=== PATIENT | female | born 1975 | race Caucasian/White ===

== ENCOUNTER → 2022-10-23 11:56 | Outpatient (CLI) | payer OTHER, SELFPAY ==
--- NOTE | 2022-10-23 | DI.RAD.S_ITS ---
PROCEDURE: XR FOOT RT 2V INDICATIONS: Artheritis screening TECHNIQUE: 2 views of the foot were acquired. COMPARISON: None. FINDINGS: Bones: No fractures or dislocations. No suspicious bony lesions. Plantar calcaneal spur. Soft tissues: No tibiotalar joint effusion. Achilles tendon appears normal. IMPRESSION: No evidence acute bony abnormality. Dictated by: Grayson Vincent M.D. on 10/23/2022 at 15:29 Approved by: Grayson Vincent M.D. on 10/23/2022 at 15:30
--- NOTE | 2022-10-23 | DI.RAD.S_ITS ---
PROCEDURE: XR KNEE LT 1TO2V INDICATIONS: Artheritis screening TECHNIQUE: 2 views of the knee were acquired. COMPARISON: None. FINDINGS: Bones: No fractures or dislocations. No suspicious bony lesions. Mild tricompartmental knee joint degeneration. Soft tissues: No joint effusion. No suspicious soft tissue calcifications. IMPRESSION: Mild osteoarthritic changes. Dictated by: Kenneth Rodríguez M.D. on 10/23/2022 at 15:04 Approved by: Kenneth Rodríguez M.D. on 10/23/2022 at 15:05
--- NOTE | 2022-10-23 | DI.RAD.S_ITS ---
PROCEDURE: XR FOOT LT 2V INDICATIONS: Artheritis screening TECHNIQUE: 3 views of the foot were acquired. COMPARISON: [facility], CR, XR FOOT RT 2V, 10/23/2022, 12:28. FINDINGS: Bones: No fractures or dislocations. No suspicious bony lesions. Plantar calcaneal spur. Soft tissues: No tibiotalar joint effusion. Achilles tendon appears normal. IMPRESSION: Plantar calcaneal spur. No evidence acute bony abnormality. Dictated by: Grayson Vincent M.D. on 10/23/2022 at 15:30 Approved by: Grayson Vincent M.D. on 10/23/2022 at 15:30
--- NOTE | 2022-10-23 | DI.RAD.S_ITS ---
PROCEDURE: XR KNEE RT 1TO2V INDICATIONS: Artheritis screening TECHNIQUE: 2 views of the knee were acquired. COMPARISON: None. FINDINGS: Bones: No fractures or dislocations. No suspicious bony lesions. Mild osteoarthritic changes. Soft tissues: No joint effusion. No suspicious soft tissue calcifications. IMPRESSION: Mild osteoarthritic changes. Dictated by: Kenneth Rodríguez M.D. on 10/23/2022 at 15:05 Approved by: Kenneth Rodríguez M.D. on 10/23/2022 at 15:05
--- NOTE | 2022-10-23 | DI.RAD.S_ITS ---
PROCEDURE: XR HAND LT 2V INDICATIONS: Artheritis screening TECHNIQUE: 2 views of the hand(s) acquired. COMPARISON: None. FINDINGS: Bones: No fractures or dislocations. Carpal bones are normally aligned. No suspicious bony lesions. Mild joint space narrowing of the 2nd and 5th distal interphalangeal joints. Soft tissues: No suspicious soft tissue calcifications. IMPRESSION: Mild joint space narrowing of the 2nd and 5th distal interphalangeal joints. Dictated by: Dejan Kevin M.D. on 10/23/2022 at 15:27 Approved by: Dejan Kevin M.D. on 10/23/2022 at 15:29
--- NOTE | 2022-10-23 | DI.RAD.S_ITS ---
PROCEDURE: XR HAND RT 2V INDICATIONS: Artheritis screening TECHNIQUE: 2 views of the hand(s) acquired. COMPARISON: [facility], CR, XR HAND LT 2V, 10/23/2022, 12:34. FINDINGS: Bones: No fractures or dislocations. Carpal bones are normally aligned. No suspicious bony lesions. Soft tissues: No suspicious soft tissue calcifications. IMPRESSION: No significant osteoarthritic changes. Dictated by: Dejan Kevin M.D. on 10/23/2022 at 15:30 Approved by: Dejan Kevin M.D. on 10/23/2022 at 15:31
== END ==
PROVIDERS: PCP Registered Nurse; Referring Provider Registered Nurse; Visit Provider Registered Nurse
DX: M18.30 Unilateral post-traumatic osteoarthritis of first carpometacarpal joint, unspecified hand (principal); M05.79 Rheumatoid arthritis with rheumatoid factor of multiple sites without organ or systems involvement; R76.8 Other specified abnormal immunological findings in serum; M77.32 Calcaneal spur, left foot; M77.31 Calcaneal spur, right foot
CPT/HCPCS: 73120; 73560; 73620

== ENCOUNTER → 2022-10-30 13:40 | Outpatient (CLI) | payer OTHER, SELFPAY ==
--- NOTE | 2022-10-30 | DI.RAD.S_ITS ---
PROCEDURE: XR CHEST 2V INDICATIONS: Rheumatoid arthritis with rheumatoid factor of multiple site TECHNIQUE: 2 views of the chest were acquired. COMPARISON: None. FINDINGS: Surgical changes and devices: Intracardiac pacer. Lungs and pleura: Lungs are clear. No pleural effusions or pneumothorax. Mediastinum: Mediastinal contours are normal. Heart size is normal. Bones and chest wall: No suspicious bony abnormalities. Soft tissues appear unremarkable. IMPRESSION: No acute cardiopulmonary disease process. Dictated by: Veronique Lindo MD, PhD on 10/30/2022 at 14:00 Approved by: Veronique Lindo MD, PhD on 10/30/2022 at 14:01
== END ==
PROVIDERS: PCP Registered Nurse; Referring Provider Registered Nurse; Visit Provider Registered Nurse
DX: M05.79 Rheumatoid arthritis with rheumatoid factor of multiple sites without organ or systems involvement (principal)
CPT/HCPCS: 71046

== ENCOUNTER 2022-11-24 12:27 | Emergency (ER) | payer OTHER, SELFPAY ==
[2022-11-24 12:30] VITALS: BP 138/80; PULSE 85; RESP 17; TEMP 36.6; O2SAT 100; BMI 37.6
--- NOTE | 2022-11-24 12:46 | DI.US.S_ITS ---
PROCEDURE: US PELVIC COMPLETE INDICATIONS: HEAVY BLEEDING SINCE 11/14/22. TECHNIQUE: Real-time scanning was performed of the pelvic organs, with image documentation. Additional endovaginal scanning was necessary due to incomplete visualization of the adnexal and endometrial structures by transabdominal scanning. COMPARISON: None. FINDINGS: Uterus: Uterus is anteverted and normal in size at 10.3 x 7.2 x 6.1 cm. The myometrium is heterogeneous. The endometrium measures 21.3 mm combined thickness. Ovaries: Ovaries are not visualized. Other: No pathologic free abdominal or pelvic fluid. IMPRESSION: 1. Endometrium is thickened suggesting image hypertrophy. A short-term follow-up ultrasound is recommended. If there is clinical suspicion for endometrial cancer, consider endometrial sampling. 2. Enlarged uterus with heterogeneous echotexture of myometrium. The junctional zone is indistinct. The findings are suspicious for adenomyosis. We strive to produce accurate, complete, and clear reports of imaging services. To assist us in improving patient care, this report was composed using standard report templates and voice recognition software. Therefore, it may contain abnormal punctuation, insertions and/or omissions. Occasional wrong-word or sound-alike substitutions may occur. Though we review the report and make efforts to correct it, we do recommend that the report be read carefully in proper context to recognize any text inaccuracies. Dictated by: Kenneth Rodríguez M.D. on 11/24/2022 at 14:20 Approved by: Kenneth Rodríguez M.D. on 11/24/2022 at 14:24
[2022-11-24 13:44] LABS: Add Manual Diff / Slide Review NO; Basophils Absolute Auto 0 /uL (0-100); Basophils Percent Auto 0.7 % (0-2); Eosinophils Absolute Auto 100 /uL (0-450); Eosinophils Percent Auto 3.5 % (2-4); Hematocrit 35.8 % (36-46); Hemoglobin 12.2 g/dL (12.0-16.0); Lymphocytes Absolute Auto 1300 /uL (1100-4500); Lymphocytes Percent Auto 30.2 % (25-40); Mean Corpuscular Hemoglobin 27.9 PG (26-34); Mean Corpuscular Volume 82.1 fL (80-100); Monocytes Absolute Auto 400 /uL (0-900); Monocytes Percent Auto 8.3 % (3-14); Neutrophils Absolute Auto 2400 /uL (1500-7000); Neutrophils Percent Auto 57.3 % (50-75); Platelet Count 186 X10^3/uL (150-400); Red Blood Cell Count 4.36 X10^6/uL (4.0-5.2); Red Cell Distribution Width 14.3 % (11.6-14.8); White Blood Cell Count 4.2 X10^3/uL (4.5-11.0)
[2022-11-24 13:56] LABS: BUN Creatinine Ratio 13.8 (6-22); Blood Urea Nitrogen 9 mg/dL (7-17); Calcium 9.2 mg/dL (8.4-10.2); Carbon Dioxide 23 mmol/L (22-32); Chloride 106 mmol/L (98-107); Estimated Glomerular Filt Rate > 60 mL/min (>60); Glucose 89 mg/dL (70-100); HEMOLYSIS < 15 (0-50); Potassium 3.9 mmol/L (3.4-5.1); Sodium 137 mmol/L (137-145)
[2022-11-24 15:37] VITALS: BP 136/67; PULSE 78; RESP 18; TEMP 36.8; O2SAT 98
--- NOTE | 2022-11-25 15:20 | ED.FEMALEGU ---
HPI - Female Genitourinary <Klaudia Hendricks PA-C - Last Filed: 11/25/22 15:27> General Chief complaint: Vaginal Bleeding Stated complaint: abnormal uterine bleeding Time Seen by Provider: 11/24/22 12:36 Source: patient Mode of arrival: Ambulatory History of Present Illness HPI Narrative: 47-year-old female with past medical history adenomyosis presents to the ED with 12 days of vaginal bleeding. Patient states that it is her regular., however it has been heavier and way more prolonged than normal. Patient denies abdominal cramping. Patient states that in the past she has had heavy vaginal bleeding with the need for an emergency D and C since she was getting anemic. Patient denies fever, chills, chest pain, shortness of breath, abdominal pain, lightheadedness, dizziness, syncope. Patient has been using the NuvaRing, just remove the NuvaRing 2 days ago given the heavy bleeding. Related Data Home Medications Medication Instructions Recorded Confirmed celecoxib 200 mg capsule 100 mg PO BID 11/24/22 11/24/22 flecainide 100 mg tablet 50 mg PO BID 11/24/22 11/24/22 methotrexate sodium 2.5 mg tablet 15 mg PO WEEKLY 11/24/22 11/24/22 metoprolol succinate 25 mg 25 mg PO BID 11/24/22 11/24/22 tablet,extended release 24 hr Allergies Allergy/AdvReac Type Severity Reaction Status Date / Time morphine Allergy Hives Verified 11/24/22 12:38 Review of Systems <Klaudia Hendricks PA-C - Last Filed: 11/25/22 15:27> Review of Systems ROS Unobtainable: All systems reviewed & are unremarkable except as noted in HPI and below Constitutional Constitutional: Denies chills, Denies fatigue, Denies fever(s), Denies frequent falls, Denies lethargy and Denies weakness Eyes Eyes: Denies change in vision, Denies eye discharge, Denies irritation and Denies loss of vision ENT Ears, Nose, Mouth, and Throat: Denies change in voice, Denies dizziness, Denies neck pain, Denies sore throat and Denies throat swelling Cardiovascular Cardiovascular: Denies chest pain, Denies irregular heart rhythm, Denies lightheadedness, Denies palpitations, Denies dyspnea, Denies dyspnea on exertion and Denies orthopnea Respiratory Respiratory: Denies cough, Denies dyspnea, Denies dyspnea on exertion and Denies wheezing Gastrointestinal Gastrointestinal: Denies abdominal pain, Denies change in bowel habits, Denies diarrhea, Denies nausea and Denies vomiting Genitourinary Genitourinary: Reports abnormal vaginal bleeding, Denies hematuria, Denies flank pain, Denies urinary incontinence and Denies urinary urgency Musculoskeletal Musculoskeletal: Denies back pain, Denies muscle weakness, Denies neck pain, Denies numbness and Denies tingling Integumentary/Breasts Skin/Breast: Denies pruritus, Denies erythema, Denies rash and Denies wounds Neurologic Neurologic: Denies behavioral changes, Denies confusion, Denies dizziness, Denies frequent falls, Denies loss of vision, Denies numbness, Denies tingling and Denies weakness Psychiatric Psychiatric: Denies anxiety, Denies behavioral changes, Denies confusion, Denies depression, Denies homicidal ideation and Denies suicidal ideation Endocrine Endocrine: Denies fatigue, Denies flushing and Denies palpitations Hematologic/Lymphatic Hematologic/Lymphatic: Denies easy bruising Allergic/Immunologic Allergic/Immunologic: Denies urticaria, Denies throat swelling and Denies wheezing Patient History <Klaudia Hendricks PA-C - Last Filed: 11/25/22 15:27> alcohol intake frequency: other Substance Use Type: does not use Exam <Klaudia Hendricks PA-C - Last Filed: 11/25/22 15:27> Narrative Exam Narrative: Const General:?cooperative, healthy appearing and comfortable [facility] Head:?normal to inspection Ears:?hearing grossly normal bilaterally Nose:?external nose normal Face and sinus:?normal facial exam and sinuses nontender Mouth:?oral mucosae normal Throat:?posterior oropharynx normal Eyes General:?appearance normal, both eyes and all related structures Neck Neck:?normal visual inspection and no lymphadenopathy noted Resp Effort & Inspection:?normal respiratory effort Auscultation:?clear to auscultation bilaterally Cardio Rate:?regular rate Rhythm:?regular rhythm GI Abdomen is soft, nondistended, nontender to palpation. Neuro General:?patient alert, patient awake and patient oriented x3 Initial Vital Signs Initial Vital Signs: Vital Signs Temperature 98 F 11/24/22 12:30 Pulse Rate 85 11/24/22 12:30 Respiratory Rate 17 11/24/22 12:30 Blood Pressure 138/80 11/24/22 12:30 Pulse Oximetry 100 11/24/22 12:30 Oxygen Delivery Method Room Air 11/24/22 12:30 <Nadege Rivas MD - Last Filed: 11/26/22 13:04> Initial Vital Signs Initial Vital Signs: Vital Signs Temperature 98 F 11/24/22 12:30 Pulse Rate 85 11/24/22 12:30 Respiratory Rate 17 11/24/22 12:30 Blood Pressure 138/80 11/24/22 12:30 Pulse Oximetry 100 11/24/22 12:30 Oxygen Delivery Method Room Air 11/24/22 12:30 MDM - Female Genitourinary <Klaudia Hendricks PA-C - Last Filed: 11/25/22 15:27> Lab Data 11/24/22 13:30 11/24/22 13:30 Labs: Lab Results 11/24/22 11/24/22 11/24/22 Range/Units 13:30 13:30 13:30 WBC 4.2 L (4.5-11.0) X10^3/uL RBC 4.36 (4.0-5.2) X10^6/uL Hgb 12.2 (12.0-16.0) g/dL Hct 35.8 L (36-46) % MCV 82.1 (80-100) fL MCH 27.9 (26-34) PG MCHC 34.0 (30-36) % RDW 14.3 (11.6-14.8) % Plt Count 186 (150-400) X10^3/uL Neut % (Auto) 57.3 (50-75) % Lymph % (Auto) 30.2 (25-40) % [place] % (Auto) 8.3 (3-14) % Eos % (Auto) 3.5 (2-4) % Baso % (Auto) 0.7 (0-2) % Neut # (Auto) 2400 (8723-1871) /uL Lymph # (Auto) 1300 (5483-3454) /uL [place] # (Auto) 400 (0-900) /uL Eos # (Auto) 100 (0-450) /uL Baso # (Auto) 0 (0-100) /uL Sodium 137 (137-145) mmol/L Potassium 3.9 (3.4-5.1) mmol/L Chloride 106 (98-107) mmol/L Carbon Dioxide 23 (22-32) mmol/L BUN 9 (7-17) mg/dL Creatinine 0.65 (0.52-1.04) mg/dL Estimated GFR > 60 (>60) mL/min BUN/Creatinine Ratio 13.8 (6-22) Glucose 89 (70-100) mg/dL Calcium 9.2 (8.4-10.2) mg/dL Blood Type AB Negative Antibody Screen Negative Point of Care Testing Test Results Negative [facility] Narrative Medical decision making narrative: 47-year-old female with past medical history adenomyosis presents to the ED with 12 days of vaginal bleeding. Obtained labs, urine hCG, pelvic ultrasound. H&H is , all labs within normal limits. Urine hCG is negative. Ultrasound shows a thickened endometrium, enlarged uterus with heterogeneous echotexture of myometrium. The junctional zone is indistinct. Findings are suspicious for adenomyosis. Radiologist recommends serial ultrasound, possible endometrial sampling for endometrial cancer if there is clinical suspicion for it. Discussed findings with patient. Recommend follow-up with OBGYN Dr. Adri Benedict as soon as possible. ED return precautions were discussed with patient. Patient verbalized understanding. Medical records reviewed: Yes <Nadege Rivas MD - Last Filed: 11/26/22 13:04> Lab Data Labs: Lab Results 11/24/22 11/24/22 11/24/22 Range/Units 13:30 13:30 13:30 WBC 4.2 L (4.5-11.0) X10^3/uL RBC 4.36 (4.0-5.2) X10^6/uL Hgb 12.2 (12.0-16.0) g/dL Hct 35.8 L (36-46) % MCV 82.1 (80-100) fL MCH 27.9 (26-34) PG MCHC 34.0 (30-36) % RDW 14.3 (11.6-14.8) % Plt Count 186 (150-400) X10^3/uL Neut % (Auto) 57.3 (50-75) % Lymph % (Auto) 30.2 (25-40) % [place] % (Auto) 8.3 (3-14) % Eos % (Auto) 3.5 (2-4) % Baso % (Auto) 0.7 (0-2) % Neut # (Auto) 2400 (1537-7575) /uL Lymph # (Auto) 1300 (7383-5377) /uL [place] # (Auto) 400 (0-900) /uL Eos # (Auto) 100 (0-450) /uL Baso # (Auto) 0 (0-100) /uL Sodium 137 (137-145) mmol/L Potassium 3.9 (3.4-5.1) mmol/L Chloride 106 (98-107) mmol/L Carbon Dioxide 23 (22-32) mmol/L BUN 9 (7-17) mg/dL Creatinine 0.65 (0.52-1.04) mg/dL Estimated GFR > 60 (>60) mL/min BUN/Creatinine Ratio 13.8 (6-22) Glucose 89 (70-100) mg/dL Calcium 9.2 (8.4-10.2) mg/dL Blood Type AB Negative Antibody Screen Negative Point of Care Testing Test Results Negative Discharge Plan Departure Patient Disposition: Home Clinical Impression: Vaginal bleeding Instructions: DI for Menorrhagia Activity Restrictions/Additional Instructions: You were evaluated in the ED today for heavy menstrual bleeding. Your labs were normal and your hemoglobin is 12.2 which is normal. The pelvic ultrasound shows findings suspicious for adenomyosis, which you have already been diagnosed with. The endometrium is also thickened, and it was advised that you get follow-up with a grinder setup operator for repeat ultrasounds and possible biopsies. You may follow-up with OBGYN Dr. Adri Benedict at [phone]. Please return to the ED if bleeding worsens, you feel short of breath, you experience chest pain. Prescriptions: No Action celecoxib 200 mg capsule 100 mg PO BID methotrexate sodium 2.5 mg tablet 15 mg PO WEEKLY flecainide 100 mg tablet 50 mg PO BID metoprolol succinate 25 mg tablet extended release 24 hr 25 mg PO BID Referrals: Nahomy Alba ARNP [Primary Care Provider] - Stand Alone Forms: Patient Portal/API <Nadege Rivas MD - Last Filed: 11/26/22 13:04> Cosign ED Attending Cosmarvinature Attestation: I did not see this patient. I was available at all times for consultation.
== END 2022-11-24 15:38 | disposition home or self-care (01) ==
PROVIDERS: Emergency Provider Student in an Organized Health Care Education/Training Program; PCP Registered Nurse
DX: N93.9 Abnormal uterine and vaginal bleeding, unspecified (principal)
CPT/HCPCS: 36415; 76830; 76856; 80048; 81025; 85025; 86850; 86900; 86901; 99283; 99284